=== PATIENT | male | born 1990 | race Caucasian/White ===

== ENCOUNTER → 2019-03-26 11:33 | Outpatient (CLI) | payer MEDICAID, SELFPAY ==
--- NOTE | 2019-03-26 11:43 | US_ITS ---
STUDY: RENAL ULTRASOUND - COMPLETE REASON FOR EXAM: Male, 28 years old. Polycystic kidney disease TECHNIQUE: Ultrasound evaluation of the kidneys was performed with real-time and static gibbs-scale imaging. COMPARISON: None available. FINDINGS: RIGHT KIDNEY: Normal location of the right kidney, which is normal in size. The right kidney measures cm. There is a normal cortex of the right kidney. There are multiple cysts in the right kidney with the largest measuring 1.3 x 1.2 cm. Some of the cysts are complex in nature. There are no right renal calculi. There is no right hydronephrosis. DISTAL RIGHT URETER: There is non-visualization of the distal right ureter. There is no demonstrated right ureterovesical junction calculus. There is a visualized right ureteral jet. LEFT KIDNEY: Normal location of the left kidney, which is normal in size. The left kidney measures there are multiple cysts in the left kidney with the largest measuring 3.8 x 3.5 cm. Some of the cysts are complex in nature. cm. There is a normal cortex of the left kidney. There is no left renal mass or cyst. There are no left renal calculi. There is no left hydronephrosis. DISTAL LEFT URETER: There is non-visualization of the distal left ureter. There is no demonstrated left ureterovesical junction calculus. There is a visualized left ureteral jet. BLADDER: The urinary bladder is partially distended and appears unremarkable. US/Kidney and Bladder IMPRESSION: Multiple bilateral renal cysts, some of which are complex in nature. If indicated, a renal protocol CT or MRI can be performed to exclude a cystic renal neoplasm. Electronically Signed: Vikas Ortega, at 17:19 EDT Tel , Service support ,
== END ==
PROVIDERS: Family Provider Family Medicine; PCP Family Medicine; Referring Provider Internal Medicine Nephrology; Visit Provider Internal Medicine Nephrology
DX: Q61.3 Polycystic kidney, unspecified (principal)
CPT/HCPCS: 76770

== ENCOUNTER → 2019-06-05 13:13 | Outpatient (CLI) | payer MEDICAID, SELFPAY ==
[2019-06-05 17:05] LABS: AST(SGOT) 10 U/L (15-37); Alanine Aminotransfer ALT/SGPT 14 U/L (16-61); Albumin, Serum 3.7 g/dL (3.2-5.0); Alkaline Phosphatase 69 U/L (45-117); Bilirubin, Direct 0.12 mg/dL (0.00-0.30); Globulin 3.8 g/dL (2.2-4.2); Protein, Total 7.5 g/dL (6.4-8.2)
== END ==
PROVIDERS: Family Provider Family Medicine; PCP Family Medicine; Referring Provider Internal Medicine Nephrology; Visit Provider Internal Medicine Nephrology
DX: Q61.3 Polycystic kidney, unspecified (principal)
CPT/HCPCS: 36415; 80076

== ENCOUNTER 2021-09-08 17:22 | Emergency (ER) | payer MEDICAID, SELFPAY ==
[2021-09-08 17:23] VITALS: BP 134/60; PULSE 66; RESP 18; TEMP 35.8; O2SAT 99; BMI 26.5
--- NOTE | 2021-09-08 18:22 | CT_ITS ---
STUDY: CT CERVICAL SPINE WITHOUT CONTRAST REASON FOR EXAM: Female, 31 years old. Injury/Pain RADIATION DOSAGE (If Supplied By Facility): CTDIvol = ( 18.78 ) mGy, DLP = ( 359.41 ) mGycm TECHNIQUE: High resolution transaxial imaging was performed without contrast material. Sagittal and coronal images were reconstructed. Individualized dose optimization techniques were used for this CT. COMPARISON: None FINDINGS: Normal craniovertebral junction. Normal anterior atlantoaxial articulation. Normal odontoid process. Normal cervical lordosis. Normal vertebral bodies and posterior osseous elements. C2-3: Normal endplates. Normal disc height and morphology. Normal central canal and intervertebral neuroforamina. C3-4: Normal endplates. Normal disc height and morphology. Normal central canal and intervertebral neuroforamina. C4-5: Normal endplates. Normal disc height and morphology. Normal central canal and intervertebral neuroforamina. C5-6: Normal endplates. Normal disc height with a mild left paramedian disc protrusion. Normal central canal and intervertebral neuroforamina. C6-7: Normal endplates. Normal disc height and morphology. Normal central canal and intervertebral neuroforamina. C7-T1: Normal endplates. Normal disc height and morphology. Normal central canal and intervertebral neuroforamina. Normal visualized soft tissue structures. CT/Spine Cervical without Contras IMPRESSION: Left paramedian disc protrusion at C5-6. Electronically Signed: Juan Saavedra DO at 20:32 EST Tel [phone], Service support ,
--- NOTE | 2021-09-08 18:22 | CT_ITS ---
STUDY: CT BRAIN WITHOUT CONTRAST REASON FOR EXAM: Female, 31 years old. Injury/Pain RADIATION DOSAGE (If Supplied By Facility): CTDIvol = ( 47.06 ) mGy, DLP = ( 837.39 ) mGycm TECHNIQUE: Transaxial CT imaging of the brain was performed without administration of intravenous contrast material. Individualized dose optimization techniques were used for this CT. COMPARISON: No relevant priors. FINDINGS: Normal soft tissue structures. Normal calvarium. Normal size ventricles and extra-axial spaces for the patient''s age. Normal white matter tracts of the cerebral hemispheres. Normal basal ganglia and thalami. Normal brainstem. Normal cerebellum. There is no intracranial hemorrhage. There are no findings of an acute ischemic infarction. Normal visualized paranasal sinuses. CT/Brain/Head without Contrast IMPRESSION: Normal unenhanced CT scan of the brain. Electronically Signed: Juan Saavedra DO at 20:28 EST Tel [phone], Service support ,
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
[2021-09-08 19:13] VITALS: BP 139/90; PULSE 57; RESP 16; O2SAT 100
== END 2021-09-08 21:00 | disposition home or self-care (01) ==
PROVIDERS: Emergency Provider Emergency Medicine; PCP Family Medicine
DX: S09.90XA Unspecified injury of head, initial encounter (principal); S16.1XXA Strain of muscle, fascia and tendon at neck level, initial encounter; V43.52XA Car driver injured in collision with other type car in traffic accident, initial encounter; Y92.410 Unspecified street and highway as the place of occurrence of the external cause; M50.222 Other cervical disc displacement at C5-C6 level; F17.210 Nicotine dependence, cigarettes, uncomplicated; Q61.3 Polycystic kidney, unspecified
CPT/HCPCS: 70450; 72125; 99282